=== PATIENT | female | born 1965 | race Caucasian/White ===

== ENCOUNTER 2017-09-20 11:14 | Emergency (ER) | payer MEDICAID ==
[~2017-09-20] VITALS: Ht 144.8 cm; Wt 42.6 kg
[2017-09-20] MEDS ORDERED: TRAZ-146 PO (11:30)
[2017-09-20] MEDS ORDERED: CARB200T PO (11:30)
[2017-09-20] MEDS ORDERED: DIVA500T7 PO (11:30)
[2017-09-20] MEDS ORDERED: FLUO20CA39 PO (11:30)
[2017-09-20] MEDS ORDERED: SERT25TA PO (11:30)
[2017-09-20] MEDS ORDERED: ACET-812 PO (11:30)
[2017-09-20 11:41] VITALS: BP 125/58
== END 2017-09-20 11:43 | disposition home or self-care (01) ==
LOC: ER 11:15
DX: Z76.0 Encounter for issue of repeat prescription (principal); F17.200 Nicotine dependence, unspecified, uncomplicated; F12.10 Cannabis abuse, uncomplicated; Z88.6 Allergy status to analgesic agent
CPT/HCPCS: 99283

== ENCOUNTER 2017-10-16 17:07 | Emergency (ER) | payer MEDICAID ==
[~2017-10-16] VITALS: Ht 144.8 cm; Wt 44.7 kg
[~2017-10-16 17:07] MED LIST: ACET-812 PO; CARB200C4 PO; CARB200T PO; SERT25TA PO; TRAZ-146 PO
[2017-10-16 17:16] VITALS: BP 140/91
[2017-10-16 19:38] LABS: BASOPHILS % (AUTO) 0.3 % (0-1); EOSINOPHILS # (AUTO) 0.1 X10'3 (0-0.9); EOSINOPHILS % (AUTO) 1.6 % (0-6); HEMOGLOBIN 13.9 g/dl (12.0-16.0); LYMPHOCYTES # (AUTO) 3.4 X10'3 (1.1-4.8); LYMPHOCYTES % (AUTO) 41.3 % (21-51); MEAN CORPUSCULAR HEMOGLOBIN 31.9 PG (27.0-31.0); MEAN CORPUSCULAR HGB CONC 34.8 % (33.0-36.5); MEAN CORPUSCULAR VOLUME 91.7 FL (78-98); MEAN PLATELET VOLUME 7.4 FL (7.4-10.4); MONOCYTES # (AUTO) 0.6 X10'3 (0-0.9); NEUTROPHILS % (AUTO) 48.8 % (42-75); PLATELET COUNT 311 X10'3 (140-440); RED BLOOD COUNT 4.36 X10'6 (4.20-5.60); WHITE BLOOD COUNT 8.1 X10'3 (4.5-11.0)
[2017-10-16 19:49] LABS: INR 0.9 INR; PARTIAL THROMBOPLASTIN TIME 26 SECONDS (22-32); PROTHROMBIN TIME 9.7 SECONDS (9.0-12.0)
[2017-10-16] MEDS ORDERED: LORazepam 1 MG tablet PO ONE (19:50)
[2017-10-16 20:02] LABS: ALANINE AMINOTRANSFERASE 22 U/L (12-78); ALBUMIN 3.8 G/DL (3.4-5.0); ALBUMIN/GLOBULIN RATIO 0.7 (1.1-1.5); ALKALINE PHOSPHATASE 93 IU/L (46-116); ANION GAP 12 (8-16); ASPARTATE AMINO TRANSFERASE 23 U/L (10-37); BILIRUBIN,TOTAL 0.2 MG/DL (0.1-1.0); BLOOD UREA NITROGEN 13 MG/DL (7-18); BUN/CREATININE RATIO 19.4 (6.6-38.0); CALCIUM 8.9 MG/DL (8.5-10.1); CHLORIDE 100 MMOL/L (99-107); CREATININE 0.67 MG/DL (0.40-0.90); ETHANOL < 0.010 GM/DL (0.0-0.010); GLUCOSE 95 MG/DL (70-104); POTASSIUM 3.9 MMOL/L (3.5-5.1); SODIUM 136 MMOL/L (135-145); TOTAL CARBON DIOXIDE 24.3 MMOL/L (24-32); TOTAL PROTEIN 8.9 G/DL (6.4-8.2); eGFR > 90 ML/MIN
[2017-10-16 20:06] LABS: CLARITY,URINE Clear (Clear); COLOR,URINE Yellow (Yellow); GLUCOSE, URINE Negative (Neg); KETONES,URINE Negative (Neg); LEUKOCYTE ESTERASE ,URINE Trace (Neg); NITRITES, URINE Negative (Neg); OCCULT BLOOD,URINE Negative (Neg); PROTEIN,URINE Negative (Neg)
[2017-10-16 20:07] LABS: VALPROATE 17 UG/ML (50-100)
[2017-10-16 20:11] LABS: UA COLLECTION TYPE CLN CATCH MIDSTREAM; URINE AMPHETAMINE SCREEN NEGATIVE (Neg); URINE BARBITUATE SCREEN NEGATIVE (Neg); URINE BENZODIAZEPINES SCREEN NEGATIVE (Neg); URINE CANNABINOID SCREEN POSITIVE (Neg); URINE COCAINE SCREEN NEGATIVE (Neg); URINE METHADONE SCREEN NEGATIVE (Neg); URINE OPIATE SCREEN NEGATIVE (Neg); URINE PHENCYCLIDINE SCREEN NEGATIVE (Neg)
[2017-10-16 20:16] LABS: RBC,URINE NONE SEEN /HPF (0-2); WBC,URINE 0-4 /HPF (0-4)
[2017-10-16 20:17] LABS: BACTERIA,URINE FEW /HPF (Neg); SQUAMOUS EPITHELIAL CELL,UR NONE SEEN /LPF (FEW)
[2017-10-16 21:43] LABS: OCCULT BLOOD STOOL NEGATIVE (Neg)
[2017-10-16] MEDS ORDERED: divalproex sod 250mg ER (24-hour) tablet PO STA (22:10)
[2017-10-16] MEDS ORDERED: carBAMazepine Ext. Release 200 MG TAB.ER.12H PO STA (22:10)
[2017-10-16] MEDS ORDERED: traZODone 50mg tablet PO STA (22:10)
[2017-10-16] MEDS ORDERED: FLUO-100 PO (22:19)
[2017-10-16] MEDS ORDERED: POLY17PO10 PO (22:19)
[2017-10-16] MEDS ORDERED: ZOL50T PO (22:19)
[2017-10-16] MEDS ORDERED: CARB200T PO (22:19)
[2017-10-16] MEDS ORDERED: DIVA-81 PO (22:19)
[2017-10-16] MEDS ORDERED: METR500T4 PO (22:26)
[2017-10-16] MEDS ORDERED: CIPR-230 PO (22:26)
[2017-10-16] MEDS ORDERED: carBAMazepine 100mg chewable tablet PO ONE (22:40)
== END 2017-10-16 22:52 | disposition home or self-care (01) ==
LOC: ER 17:08
DX: K62.89 Other specified diseases of anus and rectum (principal); K59.00 Constipation, unspecified; G40.909 Epilepsy, unspecified, not intractable, without status epilepticus; F12.10 Cannabis abuse, uncomplicated; F17.200 Nicotine dependence, unspecified, uncomplicated; Z90.49 Acquired absence of other specified parts of digestive tract; Z88.6 Allergy status to analgesic agent; Z79.899 Other long term (current) drug therapy
CPT/HCPCS: 36415; 74176; 80053; 80164; 80305; 80320; 81001; 82272; 83605; 83735; 85025; 85610; 85730; 87088; 99285

== ENCOUNTER 2017-12-06 23:25 | Emergency (ER) | payer MEDICAID ==
[~2017-12-06] VITALS: Ht 144.8 cm; Wt 45.0 kg
[~2017-12-06 23:25] MED LIST changes: -ACET-812 PO; +DIVA-81 PO; +FLUO-100 PO; +ZOL50T PO
[2017-12-06] MEDS ORDERED: LORazepam 2 mg/ml vial IV ONE (23:40)
[2017-12-06] MEDS ORDERED: levetiracetam inj 1,500 MG in normal saline 100ml IV soln 85 ML IV SCH ×2 (23:50→23:55)
[2017-12-07] MEDS ORDERED: levetiracetam 100mg/ml inj IV ONE (00:01)
[2017-12-07 00:08] VITALS: BP 125/75
[2017-12-07 00:19] LABS: PHENYTOIN (DILANTIN) 0.6 UG/ML (10.0-20.0)
[2017-12-07 00:28] LABS: VALPROATE 32.5 UG/ML (50-100)
[2017-12-07 00:29] LABS: CARBAMAZEPINE (TEGRETOL) 3.4 UG/ML (4.0-12.0)
[2017-12-07] MEDS ORDERED: carBAMazepine Ext. Release 200 MG TAB.ER.12H PO SCH ×2 (00:55→08:00)
[2017-12-07] MEDS ORDERED: valproic acid 250mg capsule PO SCH ×2 (00:55→02:00)
== END 2017-12-07 01:39 | disposition home or self-care (01) ==
LOC: ER 23:25
DX: G40.89 Other seizures (principal); R51 Headache; R10.9 Unspecified abdominal pain; F12.10 Cannabis abuse, uncomplicated; Z88.6 Allergy status to analgesic agent; Z88.0 Allergy status to penicillin; Z88.8 Allergy status to other drugs, medicaments and biological substances; Z79.899 Other long term (current) drug therapy; Z90.49 Acquired absence of other specified parts of digestive tract
CPT/HCPCS: 36415; 80156; 80164; 80185; 96374; 96375; 99284; J1953; J2060; J7030

== ENCOUNTER 2018-01-22 13:18 | Emergency (ER) | payer MEDICAID ==
[~2018-01-22] VITALS: Ht 144.8 cm; Wt 48.0 kg
[2018-01-22 14:03] LABS: BASOPHILS % (AUTO) 0.5 % (0-1); EOSINOPHILS # (AUTO) 0.2 X10'3 (0-0.9); EOSINOPHILS % (AUTO) 2.7 % (0-6); HEMATOCRIT 31.1 % (35.0-45.0); HEMOGLOBIN 10.5 g/dl (12.0-16.0); LYMPHOCYTES # (AUTO) 1.8 X10'3 (1.1-4.8); LYMPHOCYTES % (AUTO) 31.8 % (21-51); MEAN CORPUSCULAR HEMOGLOBIN 31.7 PG (27.0-31.0); MEAN CORPUSCULAR HGB CONC 33.6 % (33.0-36.5); MEAN CORPUSCULAR VOLUME 94.3 FL (78-98); MEAN PLATELET VOLUME 7.5 FL (7.4-10.4); MONOCYTES # (AUTO) 0.6 X10'3 (0-0.9); MONOCYTES % (AUTO) 10.8 % (2-12); NEUTROPHILS # (AUTO) 3.1 X10'3 (1.8-7.7); NEUTROPHILS % (AUTO) 54.2 % (42-75); PLATELET COUNT 521 X10'3 (140-440); RED BLOOD COUNT 3.29 X10'6 (4.20-5.60); RED CELL DISTRIBUTION WIDTH 13.5 % (11.5-14.5); WHITE BLOOD COUNT 5.8 X10'3 (4.5-11.0)
[2018-01-22 14:11] LABS: PROTHROMBIN TIME 9.9 SECONDS (9.0-12.0)
[2018-01-22 14:19] LABS: ALANINE AMINOTRANSFERASE 11 U/L (12-78); ALBUMIN 2.9 G/DL (3.4-5.0); ALBUMIN/GLOBULIN RATIO 0.6 (1.1-1.5); ALKALINE PHOSPHATASE 118 IU/L (46-116); ANION GAP 9 (8-16); ASPARTATE AMINO TRANSFERASE 18 U/L (10-37); BILIRUBIN,TOTAL 0.2 MG/DL (0.1-1.0); BLOOD UREA NITROGEN 10 MG/DL (7-18); BUN/CREATININE RATIO 16.1 (6.6-38.0); CALCIUM 8.5 MG/DL (8.5-10.1); CHLORIDE 96 MMOL/L (99-107); CREATININE 0.62 MG/DL (0.40-0.90); GLUCOSE 105 MG/DL (70-104); POTASSIUM 4.4 MMOL/L (3.5-5.1); SODIUM 132 MMOL/L (135-145); TOTAL CARBON DIOXIDE 27.2 MMOL/L (24-32); eGFR > 90 ML/MIN
[2018-01-22] MEDS ORDERED: normal saline 1000ML IV soln IVB ONE (18:40)
[2018-01-22] MEDS ORDERED: ondansetron/PF 4mg/2ml inj IV ONE ×2 (18:40→22:05)
[2018-01-22] MEDS: diatr meglu/diatrizoate 30ml oral sol.-(3 dose) bottle PO SCH ×3 (18:55→20:25)
[2018-01-22 18:56] LABS: CLARITY,URINE CLEAR (Clear); COLOR,URINE YELLOW (Yellow); GLUCOSE, URINE NEGATIVE (Neg); KETONES,URINE NEGATIVE (Neg); LEUKOCYTE ESTERASE ,URINE NEGATIVE (Neg); NITRITES, URINE NEGATIVE (Neg); OCCULT BLOOD,URINE NEGATIVE (Neg); PH,URINE 6.5 (4.8-8.0); PROTEIN,URINE NEGATIVE (Neg)
[2018-01-22] MEDS: morphine 4 MG/ML inj SYRINge IV PRN ×2 (18:59→20:25)
[2018-01-22 19:02] LABS: UA COLLECTION TYPE CLN CATCH MIDSTREAM
[2018-01-22] MEDS ORDERED: iohexol 300mg/ml 100ml inj. ONE (19:43)
[2018-01-22] MEDS ORDERED: morphine 4 MG/ML inj SYRINge IV ONE (22:05)
[2018-01-22] MEDS ORDERED: nicotine 21mg patch - 24 hr TD SCH (22:35)
[2018-01-22 23:27] VITALS: BP 124/48
== END 2018-01-22 23:30 | disposition short-term general hospital (02) ==
LOC: ER 13:18
DX: C18.7 Malignant neoplasm of sigmoid colon (principal); C78.7 Secondary malignant neoplasm of liver and intrahepatic bile duct; C77.2 Secondary and unspecified malignant neoplasm of intra-abdominal lymph nodes; K59.09 Other constipation; K83.8 Other specified diseases of biliary tract; R59.1 Generalized enlarged lymph nodes; F12.10 Cannabis abuse, uncomplicated; F15.10 Other stimulant abuse, uncomplicated; Z90.49 Acquired absence of other specified parts of digestive tract; Z88.0 Allergy status to penicillin; Z88.6 Allergy status to analgesic agent; Z91.018 Allergy to other foods; Z79.899 Other long term (current) drug therapy
CPT/HCPCS: 36415; 74177; 80053; 81003; 85025; 85610; 96361; 96374; 96375; 96376; 99285; J2270; J2405; J7030; Q9963; Q9967

== ENCOUNTER 2018-04-10 08:04 | Inpatient (IN) | payer MEDICAID ==
[~2018-04-10] VITALS: Ht 144.8 cm; Wt 44.0 kg
[~2018-04-10 08:04] MED LIST changes: -TRAZ-146 PO; +TRAZ-219 PO
[2018-04-10] MEDS ORDERED: normal saline 1000ML IV soln IVB ONE (08:10)
[2018-04-10] MEDS ORDERED: LORazepam 2 mg/ml vial IV ONE (08:10)
[2018-04-10 08:49] LABS: BASOPHILS % (AUTO) 0.3 % (0-1); EOSINOPHILS % (AUTO) 0.7 % (0-6); HEMATOCRIT 43.1 % (35.0-45.0); HEMOGLOBIN 14.4 g/dl (12.0-16.0); LYMPHOCYTES # (AUTO) 1.3 X10'3 (1.1-4.8); LYMPHOCYTES % (AUTO) 25.8 % (21-51); MEAN CORPUSCULAR HEMOGLOBIN 29.9 PG (27.0-31.0); MEAN CORPUSCULAR HGB CONC 33.4 % (33.0-36.5); MEAN CORPUSCULAR VOLUME 89.5 FL (78-98); MEAN PLATELET VOLUME 7.8 FL (7.4-10.4); MONOCYTES # (AUTO) 0.7 X10'3 (0-0.9); MONOCYTES % (AUTO) 14.3 % (2-12); NEUTROPHILS # (AUTO) 2.9 X10'3 (1.8-7.7); NEUTROPHILS % (AUTO) 58.9 % (42-75); PLATELET COUNT 295 X10'3 (140-440); RED BLOOD COUNT 4.81 X10'6 (4.20-5.60); RED CELL DISTRIBUTION WIDTH 16.9 % (11.5-14.5)
[2018-04-10 09:05] LABS: ALANINE AMINOTRANSFERASE 20 U/L (12-78); ALBUMIN 3.6 G/DL (3.4-5.0); ALBUMIN/GLOBULIN RATIO 0.7 (1.1-1.5); ALKALINE PHOSPHATASE 168 IU/L (46-116); ANION GAP 15 (8-16); ASPARTATE AMINO TRANSFERASE 35 U/L (10-37); BILIRUBIN,TOTAL 0.3 MG/DL (0.1-1.0); BLOOD UREA NITROGEN 8 MG/DL (7-18); BUN/CREATININE RATIO 7.9 (6.6-38.0); CALCIUM 8.5 MG/DL (8.5-10.1); CHLORIDE 93 MMOL/L (99-107); CREATINE KINASE 99 U/L (26-192); CREATININE 1.01 MG/DL (0.40-0.90); GLUCOSE 128 MG/DL (70-104); POTASSIUM 3.7 MMOL/L (3.5-5.1); SODIUM 125 MMOL/L (135-145); TOTAL CARBON DIOXIDE 17.4 MMOL/L (24-32); TOTAL PROTEIN 8.6 G/DL (6.4-8.2); eGFR 57 ML/MIN
[2018-04-10 09:18] LABS: ETHANOL < 0.010 GM/DL (0.0-0.010)
[2018-04-10] MEDS ORDERED: magnesium 1gm/100ml D5W IVPB 100 ML IV ONE (09:25)
[2018-04-10 09:44] LABS: PHENYTOIN (DILANTIN) 0.7 UG/ML (10.0-20.0); VALPROATE 45 UG/ML (50-100)
[2018-04-10 10:30] LABS: URINE AMPHETAMINE SCREEN NEGATIVE (Neg); URINE BARBITUATE SCREEN NEGATIVE (Neg); URINE BENZODIAZEPINES SCREEN NEGATIVE (Neg); URINE CANNABINOID SCREEN NEGATIVE (Neg); URINE COCAINE SCREEN NEGATIVE (Neg); URINE METHADONE SCREEN NEGATIVE (Neg); URINE OPIATE SCREEN NEGATIVE (Neg); URINE PHENCYCLIDINE SCREEN NEGATIVE (Neg)
[2018-04-10 11:04] LABS: CLARITY,URINE CLEAR (Clear); COLOR,URINE YELLOW (Yellow); GLUCOSE, URINE NEGATIVE (Neg); KETONES,URINE NEGATIVE (Neg); LEUKOCYTE ESTERASE ,URINE NEGATIVE (Neg); NITRITES, URINE NEGATIVE (Neg); OCCULT BLOOD,URINE NEGATIVE (Neg); PROTEIN,URINE NEGATIVE (Neg); UROBILINOGEN,URINE 0.2 E.U/dL (0.2-1.0)
[2018-04-10 11:13] LABS: UA COLLECTION TYPE STRAIGHT CATH
[2018-04-10] MEDS ORDERED: divalproex sod 250mg ER (24-hour) tablet PO SCH (12:20)
[2018-04-10] MEDS ORDERED: normal saline 1000ml 1,000 ML IV SCH (12:53)
[2018-04-10] MEDS ORDERED: potassium Cl 20 mEq SR tablet PO PRN (12:55)
[2018-04-10] MEDS ORDERED: bisacodyl 10mg suppository rectal RC PRN (12:55)
[2018-04-10] MEDS ORDERED: diphenhydrAMINE 25mg capsule PO PRN (12:55)
[2018-04-10] MEDS ORDERED: magnesium hydroxide 30ml (MOM) UD suspension PO PRN (12:55)
[2018-04-10] MEDS ORDERED: HYDROcodone/acetaminophen 10/325mg tab PO PRN (12:55)
[2018-04-10] MEDS ORDERED: magnesium Cl slow-release 64mg tablet PO PRN (12:55)
[2018-04-10] MEDS ORDERED: acetaminophen 650mg rectal suppository RC PRN (12:55)
[2018-04-10] MEDS ORDERED: mag hydrox/Alum hydrox/simeth 30ml oral suspension PO PRN (12:55)
[2018-04-10] MEDS ORDERED: morphine 4 MG/ML inj SYRINge IV PRN ×2 (12:55)
[2018-04-10] MEDS ORDERED: ondansetron/PF 4mg/2ml inj IV PRN (12:55)
[2018-04-10] MEDS ORDERED: acetaminophen 325mg tablet PO PRN ×2 (12:55)
[2018-04-10] MEDS ORDERED: potassium Cl 40MEQ/NS 500ml 500 ML IV PRN ×2 (12:55)
[2018-04-10] MEDS ORDERED: HYDROcodone/acetaminophen 5mg/325mg tablet PO PRN (12:55)
[2018-04-10] MEDS ORDERED: magnesium 4gm in 100ml NS 100 ML IV PRN (12:55)
[2018-04-10] MEDS ORDERED: non-formulary drug (Carbamazepine 200 MG) PO PRN (13:05)
[2018-04-10] MEDS ORDERED: LORazepam 2 mg/ml vial IV PRN (13:55)
[2018-04-10 14:25] VITALS: BP 147/81
[2018-04-10] MEDS: sodium bicarbonate (8.4%) inj. 100 MEQ in dextrose 5%-water 1,000 ML IV SCH (16:56)
[2018-04-10 18:00] VITALS: BP 131/84
[2018-04-10] MEDS ORDERED: non-formulary drug (Carbamazepine (Tegretol) 1 TAB) PO SCH (20:00)
[2018-04-10] MEDS ORDERED: non-formulary drug (Trazodone HCl 1 TAB) PO SCH (21:00)
[2018-04-10] MEDS ORDERED: traZODone 50mg tablet PO SCH (21:00)
[2018-04-10] MEDS: divalproex sod 250mg ER (24-hour) tablet PO SCH (21:09)
[2018-04-10] MEDS: sodium chloride 1gm tablet PO SCH (21:09)
[2018-04-10] MEDS: carBAMazepine 100mg chewable tablet PO SCH (21:10)
[2018-04-10] MEDS: nicotine 21mg patch - 24 hr TD SCH (21:11)
[2018-04-10 22:00] VITALS: BP 97/60
[2018-04-11 06:00] VITALS: BP 136/82
[2018-04-11 06:35] LABS: BASOPHILS % (AUTO) 0.8 % (0-1); EOSINOPHILS # (AUTO) 0.1 X10'3 (0-0.9); EOSINOPHILS % (AUTO) 1.3 % (0-6); HEMATOCRIT 37.1 % (35.0-45.0); HEMOGLOBIN 12.6 g/dl (12.0-16.0); LYMPHOCYTES # (AUTO) 2.1 X10'3 (1.1-4.8); LYMPHOCYTES % (AUTO) 41.3 % (21-51); MEAN CORPUSCULAR HEMOGLOBIN 30.4 PG (27.0-31.0); MEAN CORPUSCULAR HGB CONC 33.9 % (33.0-36.5); MEAN CORPUSCULAR VOLUME 89.6 FL (78-98); MEAN PLATELET VOLUME 8.2 FL (7.4-10.4); MONOCYTES # (AUTO) 0.8 X10'3 (0-0.9); MONOCYTES % (AUTO) 15.6 % (2-12); NEUTROPHILS # (AUTO) 2.1 X10'3 (1.8-7.7); PLATELET COUNT 264 X10'3 (140-440); RED BLOOD COUNT 4.14 X10'6 (4.20-5.60); RED CELL DISTRIBUTION WIDTH 17.2 % (11.5-14.5); WHITE BLOOD COUNT 5.1 X10'3 (4.5-11.0)
[2018-04-11 07:07] LABS: ALANINE AMINOTRANSFERASE 16 U/L (12-78); ALBUMIN/GLOBULIN RATIO 0.7 (1.1-1.5); ALKALINE PHOSPHATASE 133 IU/L (46-116); ANION GAP 11 (8-16); ASPARTATE AMINO TRANSFERASE 31 U/L (10-37); BILIRUBIN,TOTAL 0.3 MG/DL (0.1-1.0); BLOOD UREA NITROGEN 7 MG/DL (7-18); CALCIUM 8.3 MG/DL (8.5-10.1); CHLORIDE 98 MMOL/L (99-107); GLUCOSE 97 MG/DL (70-104); PHOSPHORUS 3.2 MG/DL (2.3-4.5); POTASSIUM 3.2 MMOL/L (3.5-5.1); SODIUM 132 MMOL/L (135-145); TOTAL PROTEIN 7.2 G/DL (6.4-8.2); VALPROATE 36 UG/ML (50-100); eGFR 88 ML/MIN
[2018-04-11] MEDS: nicotine 21mg patch - 24 hr TD SCH (07:40)
[2018-04-11] MEDS: carBAMazepine 100mg chewable tablet PO SCH (07:41)
[2018-04-11] MEDS: sodium chloride 1gm tablet PO SCH ×2 (07:41→12:14)
[2018-04-11] MEDS: divalproex sod 250mg ER (24-hour) tablet PO SCH (07:41)
[2018-04-11] MEDS: sodium bicarbonate (8.4%) inj. 100 MEQ in dextrose 5%-water 1,000 ML IV SCH (07:41)
[2018-04-11] MEDS: potassium Cl 20 mEq SR tablet PO PRN ×2 (07:43→12:14)
[2018-04-11] MEDS ORDERED: sertraline 50mg tablet PO SCH ×2 (08:00)
[2018-04-11] MEDS ORDERED: FLUoxetine 20mg capsule PO SCH (08:00)
[2018-04-11] MEDS ORDERED: enoxaparin 40mg/0.4ml syringe SUBCUT SCH (08:00)
[2018-04-11 10:00] VITALS: BP 123/77
[2018-04-11] MEDS ORDERED: NICO-687 TD (12:43)
[2018-04-11] MEDS ORDERED: CARB100T15 PO (12:43)
[2018-04-11] MEDS ORDERED: DIVA250T8 PO (12:43)
[2018-04-11] MEDS ORDERED: POTA10TA36 PO (12:55)
[2018-04-11] MEDS ORDERED: SODI650T29 PO (12:55)
== END 2018-04-11 15:20 | disposition home health service (06) | DRG 53 ==
LOC: ER 08:05 → ED HOLD 12:53 → ORTHO 4S 14:25
PROVIDERS: ADMIT Family Medicine; ATTEND Family Medicine
DX: G40.419 Other generalized epilepsy and epileptic syndromes, intractable, without status epilepticus (principal); N17.9 Acute kidney failure, unspecified; E87.2 Acidosis; C34.90 Malignant neoplasm of unspecified part of unspecified bronchus or lung; E87.1 Hypo-osmolality and hyponatremia; E86.0 Dehydration; F12.90 Cannabis use, unspecified, uncomplicated; F15.90 Other stimulant use, unspecified, uncomplicated; F17.210 Nicotine dependence, cigarettes, uncomplicated; F31.9 Bipolar disorder, unspecified; Z79.899 Other long term (current) drug therapy; Z85.038 Personal history of other malignant neoplasm of large intestine; Z90.49 Acquired absence of other specified parts of digestive tract; Z93.3 Colostomy status; Z88.6 Allergy status to analgesic agent; Z88.0 Allergy status to penicillin; Z91.018 Allergy to other foods
CPT/HCPCS: 36415; 70450; 80053; 80164; 80185; 80305; 80320; 81003; 82550; 82948; 83735; 84100; 85025; 87070; 96361; 96365; 96375; 99285; A4421; J1650; J2060; J7030